=== PATIENT | female | born 1935 | race Caucasian/White ===

== ENCOUNTER 2018-10-25 12:16 | Emergency (ER) | payer MEDICARE, BC, SELFPAY ==
[2018-10-25 12:17] VITALS: BP 136/48; PULSE 50; RESP 17; TEMP 37.1; O2SAT 93; BMI 12.0
--- NOTE | 2018-10-25 12:45 | ED.DCSUM_ITS ---
- ER Visit Summary Date of Service: 10/25/18 Chief Complaint: Abdominal pain History of Present Illness: The patient is a 83 F who presents with abdominal pain, diarrhea, and nausea for the past month. Patient states her pain is diffuse across her abdomen. Patient states nothing makes it better or worse. Patient denies any radiation of the pain. Patient admits to nausea but denies any vomiting. Patient states she has been having loose and watery diarrhea for the past month. Patient states her stools have been black. Patient denies any dysuria or hematuria. Patient was seen in the emergency department at [facility]. Patient states that she had a CT scan done at that time which was negative. Patient states they tested her stool for C. difficile and it was negative. Physical Examination: Vital signs are stable. Patient is afebrile. Patient is in no acute distress. Oral mucosa is pink and moist. Neck is supple. Trachea is midline. There is no JVD noted. Heart was regular rate and rhythm. Lungs are clear and equal bilateral. Abdomen is soft. Bowel sounds are normal. There is diffuse tenderness. There is no rebound or guarding noted. Skin is warm dry. Cranial nerves II through XII are intact. There are no focal motor or sensory deficits noted. The remaining physical exam is within normal limits. Test Results: CBC shows hemoglobin of 12.1. Conference of metabolic profile showed a potassium of 3.4. Urinalysis does not show any evidence of urinary tract infection. Stool was positive for occult blood. Stool for enteric pathogens and ova and parasite are pending. Emergency Department Course and Treatment: Patient was given IV fluids. Case was discussed with Dr. Balderas from general surgery. He is agreeable with keeping the patient here at [facility]. Case was discussed with Dr. Ross. He will talk to Dr. Balderas and determine whether the patient needs to be admitted. Dr. Ross does not feel the patient needs to be admitted. He recommended patient follow-up with Dr. Balderas in 3 to 5 days. Patient and her daughter are agreeable with this plan. Patient and her daughter were instructed on signs and symptoms which should prompt return to the emergency department. All questions were answered. Disposition: Discharge home Impression: 1. Gastrointestinal bleeding This note was generated with [employer] dictation software. It may contain incorrect words, spelling, and punctuation that were not noted in review of the chart prior to signing ED Disposition - Plan for ED Patient: Disposition: Home or Assisted Living Diagnosis: Gastrointestinal bleeding Instructions: ED Bleed UGI Stable Referrals: Ghazala Jefferson [Primary Care Provider] - Cade Balderas MD [STAFF PHYSICIAN] - 3-5 Days
[2018-10-25 13:00] LABS: Absolute Lymphocyte Count 1.33 X10^3/ul (0.83-4.51); Absolute Neutrophil Count 3.7 X10^3/uL (2.0-7.7); Basophil# 0.02 X10^3/uL; Basophil% 0.3 % (0-1); Eosinophil# 0.05 X10^3/uL; Eosinophils% 0.8 % (0-5); Hematocrit 35.2 % (37-47); Hemoglobin 12.1 g/dl (12.0-15.0); Lymphocyte # 1.33 X10^3/ul (4.0); Lymphocyte % 21.8 % (19-41); Mean Corp Hgb Conc 34.4 g/gl (32-36); Mean Corpuscular Hgb 33.2 pg (27.0-32.0); Mean Corpuscular Volume 96.4 fL (81-99); Mean Platelet Vol. 9.4 fl (6.2-12.0); Monocyte# 1.04 X10^3/uL; Monocyte% 17.1 % (0-10); Neutrophil # 3.65 X10^3/uL (2.7-7.7); Platelet Count 208 K/mm3 (150-450); RBC Distribution Width CV 12.6 % (11.6-14.6); Red Blood Count 3.65 M/mm3 (4.2-5.4); White Blood Count 6.1 K/mm3 (4.4-11.0)
[2018-10-25 13:01] LABS: POSITIVE COUNT NO; POSITIVE DIFFERENTIAL NO; POSITIVE MORPHOLOGY NO
[2018-10-25] MEDS: 0.9% Normal Saline 1,000 ML 1000 ML IV (13:13)
[2018-10-25 13:15] LABS: ALB/GLOB Ratio 0.9 RATIO (0.9-2.4); AST(SGOT) 10 U/L (15-37); Alanine Aminotransfer ALT/SGPT 13 U/L (13-56); Albumin, Serum 3.1 g/dL (3.2-5.0); Alkaline Phosphatase 48 U/L (45-117); BUN 11 mg/dL (7-18); BUN/Creat Ratio 10.9 RATIO (10-20); Calcium,Total 8.5 mg/dL (8.5-10.1); Chloride 109 mmol/L (98-107); Creatinine, Serum 1.01 mg/dL (0.55-1.02); EST Glomerular Filtration Rate 56 mL/min (>60); Est Glom Filt Rate - Afr Amer 67 mL/min (>60); Estimated Creatinine Clearance 20.07 ml/min; Globulin 3.5 g/dL (2.2-4.2); Glucose 108 mg/dL (74-106); Lipase 125 U/L (73-393); Potassium 3.4 mmol/L (3.5-5.1); Protein, Total 6.6 g/dL (6.4-8.2); Sodium Level 141 mmol/L (136-145)
[2018-10-25 13:15] LABS: Bacteria 0 SEEN /hpf (None Seen); Mucous, Urine 0 SEEN /hpf (<or=2+); Red Blood Cells-Urine 0 SEEN /hpf (0-5); Squamous Epithelial Cells - UA 0 SEEN /hpf (5-10); White Blood Cells 0 SEEN /hpf (0-5)
[2018-10-25 13:16] LABS: Anion Gap 9 (5-15)
[2018-10-25 13:22] LABS: Color, Urine Yellow (Yellow); Glucose, Dipstick Normal (Normal); Ketone-Dipstick Negative (Negative); Leukocyte Esterase-Dipstick 25 /ul (Negative); Nitrite-Dipstick Negative (Negative); Occult Blood-Urine Negative /ul (Negative); Protein-Dipstick Negative (Negative); Specific Gravity, Urine 1.015 (1.002-1.030); Urine Bilirubin Dipstick Negative (Negative); Urine Clarity Clear (Clear); Urine Urobilinogen Normal (Normal)
--- NOTE | 2018-10-25 14:42 | ED.RN ---
DR NOTIFIED STOOL + FOR OCCULT BLOOD. NNO
[2018-10-25 15:04] VITALS: BP 160/78; PULSE 46; RESP 16; O2SAT 96
== END 2018-10-25 16:34 | disposition home or self-care (01) ==
PROVIDERS: Emergency Provider Emergency Medicine; Family Provider Family Medicine; PCP Family Medicine
DX: K92.2 Gastrointestinal hemorrhage, unspecified (principal); R10.9 Unspecified abdominal pain; R19.7 Diarrhea, unspecified; R11.0 Nausea; I25.10 Atherosclerotic heart disease of native coronary artery without angina pectoris; J44.9 Chronic obstructive pulmonary disease, unspecified; Z79.82 Long term (current) use of aspirin; Z79.899 Other long term (current) drug therapy; Z95.1 Presence of aortocoronary bypass graft; Z95.5 Presence of coronary angioplasty implant and graft
CPT/HCPCS: 80053; 81001; 82274; 83690; 85025; 87177; 87209; 87506; 99283; A4216

== ENCOUNTER 2018-11-01 10:02 | Day surgery (SDC) | payer MEDICARE, BC, SELFPAY ==
[2018-10-30 09:28] VITALS: BMI 26.2
[2018-11-01 10:35] VITALS: BP 153/66; PULSE 54; RESP 16; TEMP 36.8; O2SAT 99; BMI 25.7
--- NOTE | 2018-11-01 11:00 | EGD_PTH ---
PATIENT: MAICO WEATHERS LOC: EN U#:[id number] AGE/SX: 83/F ROOM: RE11/01/[address]: Dr. Cade Balderas MD : 1935 BED: DIS: 11/01/2018 SPEC #: [id number] RECD: 11/01/18 12:41 STATUS: DARLING RETeofilo #: [id number] LUCIO: 11/01/18 11:[address]: Cade Balderas DEPT: SURGICAL PATHOLOGY RECD BY: Ashok Conrad ENTERED: 11/01/18 13:25 SP TYPE: EGD BIOPSY OT DR: Dr. Ghazala Jefferson MD Tissues: A - Gastric mucous membrane B - COLON BIOPSY Procedures: Trichrome (control) Special Stain Group II Surgery Specimen Level IV HEADER OPERATION: Colonoscopy, EGD ([facility]) PRE-OP DIAGNOSIS: Heme-positive stools, epigastric abdominal pain, diarrhea TISSUE SUBMITTED: A - Antral biopsy and H. pylori, B - Random colon biopsies MICROSCOPIC DIAGNOSIS A. Gastric antrum, biopsy: Mild to moderate chronic gastritis with focal acute gastritis. See comment. B. Colon, random biopsy: Lymphocytic colitis. See comment. AM:fifi 11/05/18 COMMENT A. The results of immunohistochemistry for Helicobacter pylori will be reported separately ([id number]). B. Trichrome stain with matched control reveals focally thickened basal plate. MICROSCOPIC DESCRIPTION Slides are reviewed. GROSS DESCRIPTION A - Received in fixative is one container labeled with the patient's name and designated antral biopsy. The specimen consists of one irregular fragment of light garcia soft tissue that measures 0.7 x 0.2 x 0.1 cm. The specimen is totally submitted in one cassette. B - Received in fixative is one container labeled with the patient's name and designated random colon biopsy. The specimen consists of multiple irregular fragments of light garcia soft tissue that in aggregate measure 2.5 x 0.6 x 0.1 cm. The specimen is totally submitted in one cassette. / AM:fifi 11/01/18 TC:3 CPT: 23373 x2, 41209
--- NOTE | 2018-11-01 11:00 | IMM_PTH ---
PATIENT: MAICO WEATHERS LOC: [facility] U#:[id number] AGE/SX: 83/F ROOM: RE11/01/[address]: Dr. Cade Balderas MD : 1935 BED: DIS: 11/01/2018 SPEC #: [id number] RECD: 11/01/18 14:38 STATUS: DARLING REQ #: [id number] LUCIO: 11/01/18 11:[address]: Cade Balderas DEPT: IMMUNOHISTOCHEMISTRY RECD BY: Latricia Viera ENTERED: 11/01/18 14:39 SP TYPE: IMMUNO OTHR DR: Dr. Ghazala Jefferson MD Tissues: A - Stomach, NOS Procedures: H Pylori (initial) PHYSICIAN & INSTITUTION [place] [address] SPECIMEN INFORMATION: Tissue Source: A - Antral biopsy Clinical Info: Heme-positive stools, epigastric abdominal pain Specimen Number: [id number] CPT code: 16399 METHODOLOGY: Deparaffinized sections of prefer/formalin-fixed tissue or PAP/DQ stained slides are incubated with monoclonal/polyclonal antibodies/oligonucleotide probes. Localization is made via biotin free immunoperoxidase method. Appropriate controls are performed and reacted as expected. Results on target cell population are indicated in the following table: RESULTS: ANTIBODY / CLONE RESULT Block A H Pylori (polyclonal) negative These tests were developed and their performance characteristics determined by [facility]. They may not have been cleared or approved by the U.S. Food and Drug Administration. The FDA has determined that such clearance or approval is not necessary. INTERPRETATION: A. Antral biopsy: Negative for Helicobacter pylori organisms. AM:fifi 11/05/18
--- NOTE | 2018-11-01 12:01 | H&P.OPEN ---
History of Present Illness Date of Admission: 11/01/18 The patient is a 83 year old F anemia and diarrhea. Presents for both an upper and lower endoscopy. Past Medical/Surgical History - Planned Operation Planned Operative Procedure/s: egd/cscope Date of Operative Procedure: 11/01/18 Permit Signed: No S.O.S: No Is This Patient Having a Total Joint: No - Previous Hospitalizations/Surgeries HX Hospitalizations: Yes HX of Surgeries: hysterectomy. bladder tack. nodules removed from nose. appendectomy. tonsillectomy. heart stent. triple bypass Any Problems With Anesthesia: No You/Your Family Experience Fever (Hyperthermia) With Anes: No Cholinesterase deficiency: No - Cardiovascular Hx Chest Pain within Last 2 months: No Hx of Irregular Heartbeat and/or Afib: No - cad/follows with dr toro/last visit 2017 Hx Heart Attack: Yes - 1995 Hx Congestive Heart Failure: No Hx Rheumatic Fever: No Hx Hypertension: Yes - controlled with meds Hx Internal Defibrillator: No Hx Pacemaker: No Hx Cardiac Catheterization: No - 7 yrs ago What facility was last heart cath performed: [facility] Date of last Heart Cath: 7 yrs ago Hx Cardiac Surgery/Stents/Etc.: Yes - stent 1995/triple bypass 7 yrs ago Hx Stress Test: Yes - 7 yrs ago HX Edema: No Hx Pain in Legs when Walking/Leg Cramps: No - Respiratory Chronic Cough: No HX of Shortness of Breath: Yes - slightly sob with stairs and with exertion at times Hoarseness: No Hx Chronic Obstructive Pulmonary Disease (COPD): Yes - mild/no inhalers Hx Asthma: No Hx Emphysema: No Hx Sleep Apnea: No Hx Oxygen Use at Home: No Hx Respiratory Tract Infection/Cold (presently): No Do You Snore Loudly (louder than talking or can be heard): No Do You Often Feel Tired/ Fatigued/ Sleepy Dring Daytime?: Yes Has Anyone Observed You Stop Breathing During Sleep?: No Result (for STOP score): Positive Hx Smoking: Yes - quit 20 yrs ago Smoking Status: Former smoker - Gastrointestinal Hx Gastroesophageal Reflux: Yes Controlled With Meds: Yes Hx Gastrointestinal Disorders: Yes - diverticulitis/constant diarrhea for 1 month Hx Gastrointestinal Bleed: No Hx Ulcer: No Hx Hiatal Hernia: Yes Difficulty Chewing/Swallowing: No Recent Onset of Swallowing Problems: No Special diet followed at home: No Hx Unplanned Weight Loss of 20#: No HX Unplanned Weight Gain of 20#: No - Neurological Hx Seizures: No HX Syncope/Blackout Spells/Unconsciousness: No Hx CVA/Stroke: No Hx Transient Ischemic Attacks (TIA): No Hx Multiple Sclerosis: No Hx Parkinson's Disease: No Hx Head/Neck Injury: No Hx Headaches: No Hx Back Injury/Pain: Yes - lower back pain with adl's Recent Onset of Speech Difficulty: No Restless Legs: Yes Does patient have nerve stimulator: No Patient instructed to have device shut off: No Rep notified?: No - Blood Disorder Hx Leukemia: No Bleeding Tendencies: No Hx Deep Vein Thrombosis: No Hx High Cholesterol: Yes - on med Blood Transmitted Disease: No Hx Hepatitis: No Hx Cirrhosis: No Hx Anemia: Yes - in the past - Reproduction : No Is Patient Lactating: No Hx Hysterectomy: Yes Hx Tubal Ligation: No Are You Post Menopause: Yes - Genitourinary Hx Renal Disease: No - bladder tuck in the past/incontinence - Musculoskeletal Hx Arthritis: No Hx Rheumatoid Arthritis: No Hx Gout: No Recent Onset of an Orthopedic Problem: No - Endocrine Hx Diabetes: No Thyroid Disease: No Hx Steroid Therapy: Yes - recent prednisone - Psycho/Social Hx Substance Use: No Hx Alcohol Use: Yes - occ Hx Anxiety: No Hx Depression: Yes - on med Mental Illness: No Hx Dementia: No - forgetful and confusion - Miscellaneous Hx Cancer: No Recent Exposure to Contagious Disease: No Active MRSA: No Hx of C-Diff: Yes - over 5 yrs ago Any Loose Teeth: No - full set of dentures Allergies red dye Allergy (Verified 11/01/18 10:34) Other - Discharge Is Pt Admitted From a Detention, or a Senior Living: No Who Could Help: daughter After D/C, Where Do you Plan to Go: Return Home - From the [facility] History Number of Risk Factors: 4 - Physical Exam Lungs: Clear to auscultation Cardiovascular: Regular rate, Regular Rhythm, No murmurs Abdomen: Bowel Sounds Present, Soft, Non Tender, Non-Distended Vital Signs Temp Pulse Resp BP Pulse Ox 98.2 F 54 L 16 153/66 H 99 11/01/18 10:35 11/01/18 10:35 11/01/18 10:35 11/01/18 10:35 11/01/18 10:35 Oxygen Delivery Method Room Air Weight: 145 lb 8.081 oz Body Mass Index (BMI) 25.7 Assessment/Plan All Active Problems (Last Reviewed 10/30/18 @ 10:04 by Cade Balderas MD) Hx of colonoscopy (Acute) Hx of tonsillectomy (Acute) Hx of appendectomy (Acute) Hx of heart bypass surgery (Acute) Hx of nasal polypectomy (Acute) Hx of bladder repair surgery (Acute) Hx of hysterectomy (Acute) Black tarry stools (Acute) Acid reflux (Acute) Blood in stool (Acute) Constipation (Acute) Diarrhea (Acute) Nausea (Acute) Abdominal pain (Acute) Sleep apnea (Acute) SOB (shortness of breath) (Acute) Anxiety (Acute) Depression (Acute) Hx of heart artery stent (Acute) History of heart attack (Acute) Heart disease (Acute) Arthritis (Acute) Fatigue (Acute) Plan is to perform both an upper and lower endoscopy. Surgery Risks - Colonoscopy Risks Include but are not Limited To: Risks include but are not limited to: Bleeding, perforation requiring further surgery, inability to complete colonoscopy requiring barium enema.
[2018-11-01 12:03] VITALS: BP 111/57; BP 153/66; PULSE 61; RESP 16; TEMP 37.1; O2SAT 94
[2018-11-01 12:05] VITALS: BP 110/57; BP 153/66; PULSE 62; RESP 16; O2SAT 92
--- NOTE | 2018-11-01 12:07 | OP.ENDO_ITS ---
11/01/2018 Ghazala Jefferson Re : Upper GI endoscopy procedure for Sulaiman Phan Dear Li This procedure was performed on Thursday, November 01, 2018. My impressions and recommendations are as follows: Impressions : - Z-line regular, 38 cm from the incisors. No specimens collected. - Small hiatal hernia. - Gastritis. Biopsied. - Normal examined duodenum. No specimens collected. Recommendations : - Discharge patient to home. - Resume previous diet. - Continue present medications. - Await pathology results. - Repeat upper endoscopy. - Return to my office in 1 week. My findings are described in the full procedure note, which is enclosed. If I can be of further assistance, please feel free to contact me at Doctor phone number(s): , Fax: [phone], Work: . Sincerely, MD Cade Viramontes MD 11/01/2018 12:07:34 PM This report has been signed electronically.
[2018-11-01 12:10] VITALS: BP 106/65; BP 153/66; PULSE 61; RESP 16; O2SAT 92
--- NOTE | 2018-11-01 12:11 | OP.ENDO_ITS ---
11/01/2018 Ghazala Jefferson Re : Colonoscopy procedure for Sulaiman Duncanr Li This procedure was performed on Thursday, November 01, 2018. My impressions and recommendations are as follows: Impressions : - Decreased sphincter tone found on digital rectal exam. - Diverticulosis in the sigmoid colon. No specimens collected. - The examination was otherwise normal. - Biopsies were taken with a cold forceps from the entire colon for evaluation of microscopic colitis. Recommendations : - Discharge patient to home. - Resume previous diet. - Continue present medications. - Await pathology results. - Repeat colonoscopy in 10 years for screening purposes. - Return to my office in 1 week. My findings are described in the full procedure note, which is enclosed. If I can be of further assistance, please feel free to contact me at Doctor phone number(s): , Fax: [phone], Work: . Sincerely, MD Cade Viramontes MD 11/01/2018 12:10:58 PM This report has been signed electronically.
[2018-11-01 12:15] VITALS: BP 101/58; BP 153/66; PULSE 61; RESP 16; TEMP 36.8; O2SAT 92
[2018-11-01 12:34] VITALS: BP 153/66
== END 2018-11-01 13:24 | disposition home or self-care (01) ==
LOC: EN 10:07 → AC 10:07
PROVIDERS: Family Provider Family Medicine; PCP Family Medicine; Referring Provider Family Medicine; Visit Provider Surgery
PROC: 0DJD8ZZ Inspection of Lower Intestinal Tract, Via Natural or Artificial Opening Endoscopic (ICD-10-PCS; CPT 45378; principal; 2018-11-01 10:55)
DX: D50.0 Iron deficiency anemia secondary to blood loss (chronic) (principal); K57.30 Diverticulosis of large intestine without perforation or abscess without bleeding; K29.00 Acute gastritis without bleeding; K29.50 Unspecified chronic gastritis without bleeding; K52.832 Lymphocytic colitis; K44.9 Diaphragmatic hernia without obstruction or gangrene; K21.9 Gastro-esophageal reflux disease without esophagitis; I25.10 Atherosclerotic heart disease of native coronary artery without angina pectoris; J44.9 Chronic obstructive pulmonary disease, unspecified; E78.00 Pure hypercholesterolemia, unspecified; F32.9 Major depressive disorder, single episode, unspecified; I25.2 Old myocardial infarction; Z78.0 Asymptomatic menopausal state; Z87.891 Personal history of nicotine dependence; Z95.5 Presence of coronary angioplasty implant and graft; Z95.1 Presence of aortocoronary bypass graft; K52.9 Noninfective gastroenteritis and colitis, unspecified
CPT/HCPCS: 43239; 45380; 88305; 88313; 88342; J7120; J2405